=== PATIENT | female | born 1985 | race Caucasian/White ===

== ENCOUNTER 2021-06-20 09:03 | Emergency (ER) | payer OTHER, SELFPAY ==
[2021-06-20 09:24] VITALS: BP 124/75; PULSE 89; RESP 16; TEMP 36.8; O2SAT 99
--- NOTE | 2021-06-20 09:44 | ED.GENADULT ---
HPI - General Adult General Chief complaint: Dental/Oral Stated complaint: infected tooth Time Seen by Provider: 06/20/21 09:44 Source: patient Mode of arrival: ambulatory Limitations: no limitations History of Present Illness HPI narrative: 36-year-old female patient presents to the [facility] with complaints of an infected tooth. Patient states she has had pain to the left bottom dental area for approximately 1 week. Patient states she has had infected teeth before in the past. Denies fevers, body aches or chills. Patient states she does not have a current dentist. Related Data Allergies Allergy/AdvReac Type Severity Reaction Status Date / Time No Known Allergies Allergy Unverified 06/20/21 09:39 Review of Systems Review of Systems: CONSTITUTIONAL: Denies fever, chills, or sweats. EYES: Denies visual changes, redness, or discharge. ENT: Denies rhinorrhea, congestion, sore throat, or otalgia. Left lower dental pain x1 week CARDIOVASCULAR: Denies chest pain, palpitations, or edema. RESPIRATORY: Denies cough or dyspnea. GASTROINTESTINAL: Denies abdominal pain, nausea, vomiting, or diarrhea. GENITOURINARY: Denies dysuria or hematuria. SKIN: Denies rash or itching. MUSCULOSKELETAL: Denies back pain, joint pain, or myalgia. NEUROLOGIC: Denies headache, numbness, or weakness. PSYCHIATRIC: Denies anxiety or depression. PMFSH Past Medical History Medical History (Updated 06/20/21 @ 09:50 by RANI Hernandez) Anxiety Carpal tunnel syndrome of right wrist Chronic back pain Depression Treated with Xanax and Paxil Surgical History Surgical History (Updated 06/20/21 @ 09:45 by RANI Hernandez) Delivery by section X2 Family History Family History (Updated 06/20/21 @ 09:46 by RANI Hernandez) Other Diabetes mellitus Heart disease Hypertension Comments At the time of my signature I agree with nursing past medical history, surgical, social, and family history. There is no relevant family history pertinent to the presenting complaint. Exam Narrative: GENERAL: Well-appearing, well-nourished, and in no acute distress. HEAD: Normocephalic, atraumatic. EYES: PERRLA and EOMI. ENT: Nares clear, no rhinorrhea or epistaxis. Mucous membranes moist. Patient has surrounding erythema and swelling to the left lower molar. Patient also has some pus discharge noted to the left lower bicuspid. NECK: Supple. No lymphadenopathy CHEST: Clear to auscultation. No respiratory distress. HEART: Regular rate and rhythm. No murmur heard. Normal peripheral pulses. ABDOMEN: Soft, nontender, nondistended, normal active bowel sounds. EXTREMITIES: Normal range of motion. No edema. SKIN: Warm, dry, no rash. NEURO: No focal deficits. Alert and oriented x3. Course Vital Signs Vital signs: Vital Signs Temperature 36.8 C 06/20/21 09:24 Pulse Rate 89 06/20/21 09:24 Respiratory Rate 16 06/20/21 09:24 Blood Pressure 124/75 06/20/21 09:24 Pulse Oximetry 99 06/20/21 09:24 Temperature 36.8 C 06/20/21 09:24 Pulse Rate 89 06/20/21 09:24 Respiratory Rate 16 06/20/21 09:24 Blood Pressure 124/75 06/20/21 09:24 Pulse Oximetry 99 06/20/21 09:24 Vital signs reviewed Medical Decision Making Differential Diagnosis Differential Diagnosis: Differential diagnosis: Dental caries, periodontal disease, avulsed tooth, tooth infections, mandibular infection, Meet's angiana, upper tooth infection, dry socket, gingivitis, acute necrotizing ulcerative gingivitis, sialolithiasis. Plan of care for patient is to discharge home with antibiotics and refer her to a dentist. We will go ahead and supply her with a dental referral sheet. Patient may take Tylenol and ibuprofen as needed for pain as well as do warm salt water gargles. Patient verbalized understanding denies any other questions or concerns at this time. Vital Signs Vital Signs: Vital Signs Temperature 36.8 C 06/20/21 09:24 Pulse Ra
== END 2021-06-20 09:57 | disposition home or self-care (01) ==
PROVIDERS: Emergency Provider Nurse Practitioner Family
DX: K02.9 Dental caries, unspecified (principal)
CPT/HCPCS: 99213; G0463

== ENCOUNTER 2023-10-05 19:25 | Emergency (ER) | payer OTHER, SELFPAY ==
--- NOTE | 2023-10-05 19:30 | ED.EYEPROB ---
HPI - Eye Problem General Chief complaint: Eye Problems Stated complaint: Left Eye Irritation Time Seen by Provider: 10/05/23 19:40 Source: patient and RN notes reviewed Mode of arrival: ambulatory Limitations: no limitations History of Present Illness HPI Narrative: 38-year-old female presents with concern of for left eye irritation, redness, drainage, mild eyelid swelling, itching reports symptoms started about 2 days ago and got worse today. Reports she wears contacts and occasionally sleeps in her contacts. She is denying any eye pain. Denies vision changes. MD chief complaint: eye redness Related Data Allergies Allergy/AdvReac Type Severity Reaction Status Date / Time No Known Allergies Allergy Verified 10/05/23 19:36 Review of Systems Review of Systems: CONSTITUTIONAL: Denies malaise, chills, sweats, or fever. EYES: Denies visual changes. Reports left redness, irritation, discharge. ENT: Denies rhinorrhea, congestion, sinus pain, otalgia or sore throat. SKIN: Denies rash or itching. NEUROLOGIC: Denies numbness, weakness, or headache. PSYCHIATRIC: Denies anxiety or depression. All systems reviewed & are unremarkable except as noted in HPI and below PMFSH Past Medical History Medical History (Updated 10/05/23 @ 19:46 by Gini Alfaro NP) Anxiety Carpal tunnel syndrome of right wrist Chronic back pain Depression Treated with Xanax and Paxil Surgical History Surgical History (Updated 06/20/21 @ 09:45 by RANI Hernandez) Delivery by section X2 Family History Family History (Updated 06/20/21 @ 09:46 by RANI Hernandez) Other Diabetes mellitus Heart disease Hypertension Comments At time of signature, agree with nursing past medical, surgical, social and family history. There is no relevant family history pertinent to the presenting complaint Exam Narrative: GENERAL: Well-appearing, well-nourished, and in no acute distress. HEAD: Normocephalic, atraumatic. EYES: PERRLA, sclera clear, and EOMI. No nystagmus. Left sclera and conjunctivae injected with copious cloudy drainage. Left upper and lower eyelid mildly edematous and erythematous, no periorbital edema noted ENT: Nares clear, turbinates pink, no rhinorrhea or epistaxis. Mucous membranes moist. TM pearly marvin with sharp light reflex bilaterally; no tragal tenderness. NECK: Supple. CHEST: No respiratory distress. Speaks in full sentences. HEART: Regular rate and rhythm. SKIN: Warm, dry, no visible rash. NEURO: Alert and oriented x3. PSYCH: Normal mood and affect Course Course Emergency Course: Patient is aware of diagnosis, understands and agrees to treatment plan. Anticipatory guidance given. Patient agrees to follow-up as directed and is aware of reasons to seek care at the emergency department. Portions of this record may have been created with voice recognition software Level of Care: Express Care Visit Vital Signs Vital signs: Reviewed. MDM - Eye Problem MDM Narrative Medical decision making narrative: Consideration of the following conditions may be warranted for the presenting problem, they are not final diagnoses: Bacterial conjunctivitis, allergic conjunctivitis, viral conjunctivitis, foreign body, blepharitis, chalazion, hordeolum, corneal abrasion, preseptal cellulitis, orbital cellulitis. No evidence of proptosis, ophthalmoplegia, vision loss, pain with eye movement. Exam findings show no acute concerns or changes; patient is non-toxic appearing and is in no distress. Patient is appropriate for outpatient treatment and follow-up. Critical Care Time Critical Care Time Critical Care Time: No Discharge Plan Discharge Clinical Impression: Conjunctivitis Patient Disposition: Home, Self-Care Condition: Stable Instructions: How to Use Eye Drops (ED), Conjunctivitis (ED) Additional Instructions: Do not touch or rub your eye. Use a warm or cool washcloth on your eye for
[2023-10-05 19:35] VITALS: BP 143/82; PULSE 101; RESP 16; TEMP 36.9; O2SAT 99
== END 2023-10-05 19:50 | disposition home or self-care (01) ==
PROVIDERS: Emergency Provider Nurse Practitioner
DX: H10.9 Unspecified conjunctivitis (principal)
CPT/HCPCS: 99213; A9270; G0463